=== PATIENT | female | born 1990 | race Caucasian/White ===

== ENCOUNTER 2016-10-24 09:12 | Outpatient (CLI) | payer BC ==
[~2016-10-24] VITALS: Ht 157.5 cm; Wt 64.5 kg
[2016-10-24 10:02] LABS: AMNI OBC PASS; AMNISURE NEGATIVE (NEGATIVE)
[2016-10-24 10:35] VITALS: BP 113/66
== END 2016-10-24 12:15 | disposition home or self-care (01) ==
LOC: LDOP 09:12
PROVIDERS: ATTEND Obstetrics & Gynecology
DX: O42.92 Full-term premature rupture of membranes, unspecified as to length of time between rupture and onset of labor (principal); O99.113 Other diseases of the blood and blood-forming organs and certain disorders involving the immune mechanism complicating pregnancy, third trimester; D69.6 Thrombocytopenia, unspecified; Z3A.37 37 weeks gestation of pregnancy
CPT/HCPCS: 59025; 84112; 99201; G0463

== ENCOUNTER 2016-11-10 14:31 | Inpatient (IN) | payer BC ==
[~2016-11-10] VITALS: Ht 157.5 cm; Wt 67.0 kg
[2016-11-10] MEDS: LACTATED RINGERS 1,000 ML IV SCH ×2 (02:00→15:30)
[2016-11-10] MEDS ORDERED: OXYTOCIN 30U/ 0.9% NaCL 500ML 500 ML IV ONE (15:01)
[2016-11-10 15:11] VITALS: BP 118/65
[2016-11-10] MEDS ORDERED: FENTANYL PF 100 MCG/2ML IVPush PRN (15:30)
[2016-11-10] MEDS ORDERED: FENTANYL PF 100 MCG/2ML IV PRN (15:30)
[2016-11-10] MEDS ORDERED: ONDANSETRON 2MG/ML, 2ML IVPush PRN (15:30)
[2016-11-10] MEDS ORDERED: NEWBORN KIT ONE (15:58)
[2016-11-10] MEDS ORDERED: MISOPROSTOL 200 MCG TABLET ONE (15:59)
[2016-11-10] MEDS ORDERED: LIDOCAINE 1%, 20ML ONE (15:59)
[2016-11-10] MEDS ORDERED: OXYTOCIN 30U/ 0.9% NaCL 500ML 500 ML ONE (15:59)
[2016-11-10 16:04] LABS: HEMATOCRIT 32.6 % (34.6-47.8); HEMOGLOBIN 10.6 g/dL (11.7-16.4); WHITE BLOOD COUNT 7.5 x10^3/uL (3.4-10)
[2016-11-10] MEDS ORDERED: ACETAMINOPHEN 325 MG TABLET ONE (17:06)
[2016-11-10] MEDS ORDERED: ACETAMINOPHEN 325 MG TABLET PO PRN (17:30)
[2016-11-10] MEDS ORDERED: BUPIVACAINE 0.25% ONE ×2 (22:41→22:48)
[2016-11-10] MEDS ORDERED: FENTANYL PF 100 MCG/2ML ONE ×2 (22:41→22:48)
[2016-11-10] MEDS ORDERED: FENTANYL/BUPIV./NS/PF 250 ML EPIDCONT ONE ×2 (22:41→22:48)
[2016-11-10] MEDS ORDERED: LIDOCAINE/PF 1.5%-EPI 1:200K, 30ML ONE (22:48)
[2016-11-11] MEDS ORDERED: SODIUM CITRATE/CITRIC ACID 30 ML UDC ONE (02:48)
[2016-11-11] MEDS ORDERED: METOCLOPRAMIDE 5 MG/ML, 2ML ONE (02:48)
[2016-11-11] MEDS ORDERED: CALCIUM CARBONATE 500 MG TAB.CHEW ONE (03:08)
[2016-11-11] MEDS ORDERED: OXYTOCIN 30U/ 0.9% NaCL 500ML 500 ML ONE (05:02)
[2016-11-11] MEDS ORDERED: ONDANSETRON 2MG/ML, 2ML ONE (05:02)
[2016-11-11] MEDS: OXYTOCIN 30U/ 0.9% NaCL 500ML 500 ML IV SCH ×2 (05:03→15:03)
[2016-11-11] MEDS ORDERED: MISOPROSTOL 200 MCG TABLET PR PRN (05:30)
[2016-11-11] MEDS ORDERED: ONDANSETRON 2MG/ML, 2ML IV PRN (05:30)
[2016-11-11] MEDS ORDERED: MAGNESIUM HYDROXIDE 8%, 30ML UDC PO PRN (05:30)
[2016-11-11] MEDS ORDERED: CALCIUM CARBONATE 500 MG TAB.CHEW PO PRN (05:30)
[2016-11-11] MEDS ORDERED: HYDROcodone/APAP 5/325 TABLET PO PRN (05:30)
[2016-11-11] MEDS: LACTATED RINGERS 1,000 ML IV SCH ×3 (07:01→23:01)
[2016-11-11 08:35] VITALS: BP 110/67
[2016-11-11] MEDS: PRENATAL VIT/IRON/FA 1 EACH TABLET PO SCH (09:00)
[2016-11-11 12:00] VITALS: BP 110/65
[2016-11-11 13:46] LABS: HEMATOCRIT 29.2 % (34.6-47.8); HEMOGLOBIN 9.6 g/dL (11.7-16.4); WHITE BLOOD COUNT 12.2 x10^3/uL (3.4-10)
[2016-11-11 13:48] LABS: ANISOCYTOSIS 1+; LARGE PLATELETS 2+
[2016-11-11 16:00] VITALS: BP 108/67
[2016-11-11] MEDS: IBUPROFEN 600 MG TABLET PO PRN (19:22)
[2016-11-11] MEDS: DOCUSATE 100 MG CAPSULE PO PRN (19:22)
[2016-11-11 19:45] VITALS: BP 111/67
[2016-11-11] MEDS: HYDROcodone/APAP 5/325 TABLET PO PRN (21:12)
[2016-11-11 21:47] LABS: HEMATOCRIT 28.1 % (34.6-47.8); HEMOGLOBIN 9.1 g/dL (11.7-16.4); WHITE BLOOD COUNT 9.5 x10^3/uL (3.4-10)
[2016-11-12] VITALS: BP 103/69
[2016-11-12] MEDS: OXYTOCIN 30U/ 0.9% NaCL 500ML 500 ML IV SCH (01:03)
[2016-11-12] MEDS: IBUPROFEN 600 MG TABLET PO PRN (05:57)
[2016-11-12] MEDS: HYDROcodone/APAP 5/325 TABLET PO PRN (05:57)
[2016-11-12] MEDS: LACTATED RINGERS 1,000 ML IV SCH (07:01)
[2016-11-12 07:20] VITALS: BP 116/79
[2016-11-12] MEDS: PRENATAL VIT/IRON/FA 1 EACH TABLET PO SCH (08:02)
[2016-11-12] MEDS: DOCUSATE 100 MG CAPSULE PO PRN (08:02)
[2016-11-12 12:00] VITALS: BP 113/77
[2016-11-12 14:25] LABS: ASPARTATE AMINO TRANSFERASE 14 U/L (15-37); BLOOD UREA NITROGEN 8 mg/dL (7-18)
[2016-11-12 14:37] LABS: HEMATOCRIT 27.8 % (34.6-47.8); HEMOGLOBIN 9.1 g/dL (11.7-16.4); WHITE BLOOD COUNT 7.7 x10^3/uL (3.4-10)
[2016-11-12 14:38] LABS: ANISOCYTOSIS 1+; MICROCYTOSIS 1+; OVALOCYTES 1+
[2016-11-12 14:39] LABS: GIANT PLATELETS 1+; LARGE PLATELETS 1+
[2016-11-12] MEDS ORDERED: HYDR-3240 PO (15:36)
[2016-11-12] MEDS ORDERED: IBUP-1222 PO (15:42)
== END 2016-11-12 17:34 | disposition home or self-care (01) | DRG 775 ==
LOC: LDOP 14:31 → LDIP 15:01 → 2NW 11-11 07:28
PROVIDERS: ADMIT Obstetrics & Gynecology; ATTEND Obstetrics & Gynecology
PROC: 10E0XZZ Delivery of Products of Conception, External Approach (ICD-10-PCS; principal; 2016-11-11)
PROC: 3E0S3CZ (ICD-10-PCS; 2016-11-11)
PROC: 00HU33Z Insertion of Infusion Device into Spinal Canal, Percutaneous Approach (ICD-10-PCS; 2016-11-11)
DX: O99.12 Other diseases of the blood and blood-forming organs and certain disorders involving the immune mechanism complicating childbirth (principal); D69.59 Other secondary thrombocytopenia; Z37.0 Single live birth; O32.3XX0 Maternal care for face, brow and chin presentation, not applicable or unspecified; O69.81X0 Labor and delivery complicated by cord around neck, without compression, not applicable or unspecified; Z3A.39 39 weeks gestation of pregnancy; Z88.0 Allergy status to penicillin
CPT/HCPCS: 36415; 80053; 82803; 85025; 85049; 86850; 86900; J2405; J3010; J3490; J2590; J7120

== ENCOUNTER 2018-09-05 11:55 | Outpatient (CLI) | payer BC ==
[~2018-09-05] VITALS: Ht 157.5 cm; Wt 66.4 kg
[~2018-09-05 11:55] MED LIST: HYDR-3240 PO; IBUP-1222 PO
[2018-09-05 12:12] VITALS: BP 116/56
== END 2018-09-05 13:32 | disposition home or self-care (01) ==
LOC: LDOP 11:55
PROVIDERS: ATTEND Obstetrics & Gynecology
DX: O26.893 Other specified pregnancy related conditions, third trimester (principal); R10.9 Unspecified abdominal pain; Z88.0 Allergy status to penicillin; Z88.1 Allergy status to other antibiotic agents; Z3A.38 38 weeks gestation of pregnancy
CPT/HCPCS: 59025; 99211; G0463

== ENCOUNTER 2018-09-15 06:04 | Inpatient (IN) | payer BC ==
[~2018-09-15] VITALS: Ht 157.5 cm; Wt 65.0 kg
[2018-09-16 07:10] VITALS: BP 114/79
== END 2018-09-16 14:40 | disposition home or self-care (01) | DRG 807 ==
LOC: LDIP 06:04 → 2NW 17:22
PROVIDERS: ADMIT Obstetrics & Gynecology; ATTEND Obstetrics & Gynecology
PROC: 10E0XZZ Delivery of Products of Conception, External Approach (ICD-10-PCS; principal; 2018-09-15)
PROC: 3E0R3BZ Introduction of Anesthetic Agent into Spinal Canal, Percutaneous Approach (ICD-10-PCS; 2018-09-15)
PROC: 00HU33Z Insertion of Infusion Device into Spinal Canal, Percutaneous Approach (ICD-10-PCS; 2018-09-15)
DX: O66.0 Obstructed labor due to shoulder dystocia (principal); Z37.0 Single live birth; Z3A.39 39 weeks gestation of pregnancy; Z88.0 Allergy status to penicillin; Z88.1 Allergy status to other antibiotic agents
CPT/HCPCS: 36415; J3490; S0020; 85025; 86850; 86900; 87340; G0378; J2405; J3010; J2590; J7050; J7120